=== PATIENT | female | born 1990 | race Caucasian/White ===

== ENCOUNTER 2022-08-15 12:47 | Emergency (ER) | payer OTHER | END 2022-08-15 14:42 | disposition short-term general hospital (02) | LOC: NAV ERS 12:47 | DX: O9A.212 Injury, poisoning and certain other consequences of external causes complicating pregnancy, second trimester (principal); S39.91XA Unspecified injury of abdomen, initial encounter; W01.0XXA Fall on same level from slipping, tripping and stumbling without subsequent striking against object, initial encounter; Z3A.25 25 weeks gestation of pregnancy | CPT/HCPCS: 99284 ==

== ENCOUNTER 2023-06-09 23:27 | Emergency (ER) | payer OTHER ==
[2023-06-09] MEDS ORDERED: Ibuprofen 200 MG TAB ONE (23:47)
[2023-06-09] MEDS ORDERED: Acetaminophen 500 MG TAB ONE (23:57)
[2023-06-09] MEDS ORDERED: Ondansetron ODT 4 MG TAB ONE (23:58)
== END 2023-06-10 00:26 | disposition home or self-care (01) ==
LOC: NAV ERS 23:27
DX: S60.111A Contusion of right thumb with damage to nail, initial encounter (principal); R03.0 Elevated blood-pressure reading, without diagnosis of hypertension; W23.0XXA Caught, crushed, jammed, or pinched between moving objects, initial encounter
CPT/HCPCS: 11740; Q0162

== ENCOUNTER 2025-05-02 14:27 | Outpatient (CLI) | payer OTHER | END 2025-05-02 14:28 | disposition home or self-care (01) | LOC: NAV RAD 14:27 | PROVIDERS: ATTEND Family Medicine | DX: M54.42 Lumbago with sciatica, left side (principal); G89.29 Other chronic pain; M41.9 Scoliosis, unspecified; M47.816 Spondylosis without myelopathy or radiculopathy, lumbar region; M47.817 Spondylosis without myelopathy or radiculopathy, lumbosacral region | CPT/HCPCS: 72072; 72100 ==